=== PATIENT | female | born 1975 | race African-American/Black ===

== ENCOUNTER → 2016-05-24 | Outpatient (CLI) | payer OTHER ==
[~2016-05-24] MED LIST: ATIVAN PO; CIPRO250 MG PO; DIAZIDE PO; EFFEXOR PO; FLEXERIL10 MG PO; KETOPROFEN PO; NAPROSYN500 MG PO; PYRIDIUM PO; TYLOX 5/500 CAP1 CAP PO; VICODIN 5/500 T1 TAB PO
--- NOTE | ~2016-05-24 | US24 ---
[facility] A Service of [facility] RADIOLOGY TEXT RESULTS PATIENT: JOSHUA HEWITT LOCATION: [facility] : 75 UNIT #: [id number] AGE: [address]: Demetrio Novak MD SEX: F ORDER DR: [id number] [facility] [address] [place], [place] [address] [id number] O MR#: [id number] Acc #: [id number] NAME: JOSHUA HEWITT : 1975 SEX: F STUDY DATE/TIME: 05/24/2016 15:46 UNIT: [facility] ROOM: STUDY DESCRIPTION: US Breast Unilateral Attending Physician: Demetrio Novak M.D. Ordering Physician: Demetrio Novak M.D. Primary Care Physician: Demetrio Novak M.D. 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 No new problems. TECHNIQUE Sonographic imaging of the right breast was performed with attention to the 4 o'clock position to reassess stability of the probably benign nodule at 4 o'clock. COMPARISON 08/25/2015 FINDINGS RIGHT BREAST: The patient was scanned initially independently by the technologist and then rescanned in my presence. In the 4 o'clock position right breast there is a hypoechoic lobulated solid nodule measuring 11 mm x 13 mm x 7 mm. It has relatively well-circumscribed macrolobulated margins. It measured about 12 mm x 10 mm x 7 mm on the prior study and is unchanged in dimensions. Scant if any, color flow identified. On the submitted ultrasound images there is the suggestion of some more prominent posterior acoustical shadowing that is not demonstrated under real-time surveillance where there is only some minimal marginal edge shadowing present. Imaging features are most characteristic of a probably benign nodule, most likely a benign fibroadenoma and unchanged over the past 6-month period. Suggest reevaluation of this nodule in 6 months with ultrasound to document 1 year of stability at the time of the patient's bilateral screening mammogram. [facility]. [facility] A Service of [facility] RADIOLOGY TEXT RESULTS PATIENT: JOSHUA HEWITT LOCATION: [facility] : 75 UNIT #: [id number] AGE: [address]: Demetrio Novak MD SEX: F ORDER DR: Findings and recommendations were discussed with the patient. The patient was counseled that if this nodule becomes more suspicious or enlarges on followup imaging then ultrasound-guided core biopsy would be recommended at that point. 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 6-month followup imaging with ultrasound in conjunction with a bilateral screening mammogram is suggested as described above. BIRADS: 3 Probably benign finding; short interval followup suggested. Dictated by... Cecil Mejias M.D. THIS IS AN ELECTRONICALLY VERIFIED REPORT Cecil Mejias M.D. at 05/25/2016 10:15 AM HEATH/hernando TD: 05/25/2016 01:00 JOB #: [id number] MEDICAL IMAGING REPORT COPY
== END | disposition home or self-care (01) ==
LOC: CWCC 15:41
DX: R92.8 Other abnormal and inconclusive findings on diagnostic imaging of breast (principal)
CPT/HCPCS: 76641

== ENCOUNTER → 2016-09-19 | Outpatient (CLI) | payer OTHER ==
--- NOTE | ~2016-09-19 | MY29 ---
[facility] A Service of [facility] RADIOLOGY TEXT RESULTS PATIENT: JOSHUA HEWITT LOCATION: [facility] : 75 UNIT #: [id number] AGE: [address]: Demetrio Novak MD SEX: F ORDER DR: [id number] [facility] [address] [place], [place] [address] [id number] O MR#: [id number] Acc #: [id number] NAME: JOSHUA HEWITT : 1975 SEX: F STUDY DATE/TIME: 09/19/2016 11:39 UNIT: [facility] ROOM: STUDY DESCRIPTION: MY ARGELIA SCREENING W/ CAD BILAT Attending Physician: Demetrio Novak M.D. Referring Physician: Demetrio Novak M.D. Ordering Physician: Demetrio Novak M.D. Primary Care Physician: Demetrio Novak M.D. MEDICAL IMAGING REPORT This report is preliminary unless electronic signature is present EXAM Digital screening mammogram with CAD INDICATIONS Routine screening. TECHNIQUE Bilateral CC and MLO views obtained on a digital mammography unit. FDA-approved CAD device utilized. COMPARISON 08/19/2015. FINDINGS Scattered fibroglandular density. There is no dominant mass or suspicious calcification. 1.4 cm ovoid mass in the lower inner quadrant of the right breast is unchanged. IMPRESSION Benign screening mammogram, screen interval in 1 year suggested. BIRADS: 2 Benign Finding. Patients over the age of 40 are entered into a reminder system with target due date for the next mammogram. A result letter will also be sent to the patient. Dictated by... Kofi Payton M.D. THIS IS AN ELECTRONICALLY VERIFIED REPORT [facility] A Service [facility] RADIOLOGY TEXT RESULTS PATIENT: JOSHUA HEWITT LOCATION: [facility] : 75 UNIT #: [id number] AGE: [address]: Demetrio Novak MD SEX: F ORDER DR: Kofi Payton M.D. at 09/20/2016 7:17 AM VAN/shin TD: 09/19/2016 18:29 JOB #: [id number] MEDICAL IMAGING REPORT Page 1 of 1 COPY
== END | disposition home or self-care (01) ==
LOC: CWCC 11:22
DX: Z12.31 Encounter for screening mammogram for malignant neoplasm of breast (principal)
CPT/HCPCS: G0202